=== PATIENT | female | born 1995 | race Hispanic/Latino ===

== ENCOUNTER 2021-02-21 02:04 | Emergency (ER) | payer OTHER, SELFPAY ==
[2021-02-21 17:21] LABS: SARS-CoV-2 PCR by NAA Not Detected (NotDetected)
== END 2021-02-21 02:30 | disposition home or self-care (01) ==
LOC: NAV ERS 02:04
DX: J06.9 Acute upper respiratory infection, unspecified (principal); Z20.822 Contact with and (suspected) exposure to COVID-19; J45.909 Unspecified asthma, uncomplicated
CPT/HCPCS: 99283; U0003; U0005

== ENCOUNTER 2021-11-29 23:56 | Emergency (ER) | payer BC, OTHER ==
[2021-11-30] MEDS ORDERED: methylPREDNISolone Sod Succ/PF 125 MG/2 ML VIAL ONE (00:32)
== END 2021-11-30 01:10 | disposition home or self-care (01) ==
LOC: NAV ERS 23:56
DX: J45.909 Unspecified asthma, uncomplicated (principal)
CPT/HCPCS: 71045; 96372; J2930; J7620

== ENCOUNTER 2023-10-31 06:15 | Emergency (ER) | payer BC, SELFPAY ==
[2023-10-31] MEDS ORDERED: methylPREDNISolone Sod Succ/PF 125 MG/2 ML VIAL ONE (06:42)
[2023-10-31 07:15] LABS: Base Excess-Venous 0.1 mmol/L (-2.0 to 3.0); Bicarbonate (HCO3v) 25.9 mmol/L (22.0-28.0); CO2 Tension (PvCO2) 45.2 mmHg (42.0-51.0); Calcium, Ionized 1.22 mmol/L (1.15-1.33); Chloride 104 mmol/L (98-107); Hemoglobin - Calc 13.3 g/dL (12.0-16.0); Potassium 3.6 mmol/L (3.5-5.1); Sodium 139 mmol/L (138-145); T. Carbon Dioxide 27.3 mmol/L (22.0-28.0); vO2 Saturation-calc 78.3 % (60.0-85.0)
[2023-10-31 07:16] LABS: Influenza A by NAA Not Detected (NotDetected); Influenza B by NAA Not Detected (NotDetected); SARS-CoV-2 NAA Rapid Test Not Detected (NotDetected)
[2023-10-31 07:24] LABS: ALT (SGPT) 37 U/L (8-55); AST (SGOT) 21 U/L (5-34); Albumin 3.9 g/dL (3.5-5.0); Alkaline Phosphatase 86 U/L (40-110); Anion Gap 15 mmol/L (10-20); BUN (Urea Nitrogen) 9 mg/dL (7.0-18.7); Bilirubin, Total 0.6 mg/dL (0.2-1.2); Calc. Creatinine Clearance 0 mL/min (70-130); Calcium 9.3 mg/dL (7.8-10.44); Carbon Dioxide 23 mmol/L (22-29); Chloride 104 mmol/L (98-107); Estimated GFR 109; Globulin 3.2 g/dL (2.4-3.5); Glucose 129 mg/dL (70-105); Potassium 3.7 mmol/L (3.5-5.1); Protein, Total 7.1 g/dL (6.0-8.3); Sodium 138 mmol/L (136-145)
[2023-10-31 07:28] LABS: #Basophils 0.1 thou/uL (0.0-0.2); #Eosinphils 0.6 thou/uL (0.0-0.7); #Lymphocytes 2.6 thou/uL (1.20-3.40); #Monocytes 0.8 thou/uL (0.11-0.59); #Neutrophils 3.6 thou/uL (1.40-6.50); %Basophils 1.6 % (0.0-1.0); %Eosinophils 7.5 % (0.0-10.0); %Lymphocytes 34.1 % (21.0-51.0); %Monocytes 10.1 % (0.0-10.0); %Neutrophils 46.7 % (42.0-75.0); Hematocrit 39.2 % (36.0-47.0); Mean Corpuscular HGB CONC 30.6 g/dL (32.0-36.0); Mean Corpuscular Hemoglobin 22.5 pg (27.0-31.0); Mean Corpuscular Volume 73.7 fl (78.0-98.0); Platelet Count 233 10x3/uL (130-400); RBC Distribution Width 14.7 % (11.5-14.5); Red Blood Cell (RBC) Count 5.32 mill/uL (4.20-5.40); White Blood Cell (WBC) Count 7.6 10x3/uL (4.8-10.8)
== END 2023-10-31 08:07 | disposition home or self-care (01) ==
LOC: NAV ERS 06:15
DX: J45.909 Unspecified asthma, uncomplicated (principal); B34.9 Viral infection, unspecified
CPT/HCPCS: 71045; 80053; 82330; 82435; 82803; 83880; 84132; 84295; 85014; 85025; J2930

== ENCOUNTER 2023-11-30 11:37 | Emergency (ER) | payer BC ==
[2023-11-30] MEDS ORDERED: predniSONE 20 MG TAB ONE (11:51)
[2023-11-30] MEDS ORDERED: Ipratropium/Albuterol 3 ML NEB ONE (11:51)
== END 2023-11-30 12:34 | disposition home or self-care (01) ==
LOC: NAV ERS 11:37
DX: J45.909 Unspecified asthma, uncomplicated (principal); R73.03 Prediabetes
CPT/HCPCS: J7512; J7620

== ENCOUNTER 2025-02-02 11:45 | Emergency (ER) | payer BC ==
[2025-02-02] MEDS ORDERED: predniSONE 20 MG TAB ONE (12:05)
== END 2025-02-02 12:40 | disposition home or self-care (01) ==
LOC: NAV ERS 11:45
DX: J45.901 Unspecified asthma with (acute) exacerbation (principal); Z79.51 Long term (current) use of inhaled steroids
CPT/HCPCS: J7512

== ENCOUNTER 2025-03-05 06:21 | Emergency (ER) | payer BC ==
[2025-03-05] MEDS ORDERED: Albuterol 2.5 MG (3 mL) NEB ONE ×2 (06:43→07:50)
[2025-03-05] MEDS ORDERED: Magnesium 2 GM/50 ML BAG (IN WATER) ONE (07:39)
[2025-03-05 07:50] LABS: Hematocrit 45.9 % (36.0-47.0); Hemoglobin 15.3 g/dL (12.0-16.0); Mean Corpuscular Hemoglobin 24.7 pg (27.0-31.0); Mean Corpuscular Volume 74.3 fl (78.0-98.0); Platelet Count 336 10x3/uL (130-400); Red Blood Cell (RBC) Count 6.17 mill/uL (4.20-5.40); White Blood Cell (WBC) Count 11.6 10x3/uL (4.8-10.8)
[2025-03-05 07:57] LABS: MDiff Complete? YES; Platelet Adequacy Comment Appears Adequate
[2025-03-05 08:00] LABS: ALT (SGPT) 33 U/L (Less than 34); AST (SGOT) 22 U/L (11-34); Albumin 4.4 g/dL (3.1-4.5); Alkaline Phosphatase 68 U/L (40-110); Anion Gap 18 mmol/L (10-20); BUN (Urea Nitrogen) 11 mg/dL (7.0-18.7); Bilirubin, Total 0.6 mg/dL (0.3-1.2); Calc. Creatinine Clearance 0 mL/min (70-130); Calcium 9.1 mg/dL (7.8-10.44); Carbon Dioxide 17 mmol/L (22-29); Chloride 106 mmol/L (98-107); Globulin 3.8 g/dL (2.4-3.5); Glucose 159 mg/dL (70-105); Magnesium 2.0 mg/dL (1.6-2.6); Potassium 3.7 mmol/L (3.5-5.1); Sodium 137 mmol/L (136-145)
[2025-03-05 08:20] LABS: Bicarbonate (HCO3v) 19.6 mmol/L (22.0-28.0); CO2 Tension (PvCO2) 31.5 mmHg (42.0-51.0); Calcium, Ionized 1.16 mmol/L (1.15-1.33); Chloride 109 mmol/L (98-107); Hemoglobin - Calc 15.1 g/dL (12.0-16.0); Potassium 3.7 mmol/L (3.5-5.1); Sodium 136 mmol/L (138-145); T. Carbon Dioxide 20.6 mmol/L (22.0-28.0); vO2 Saturation-calc 91.6 % (60.0-85.0)
[2025-03-05] MEDS ORDERED: Albuterol 2.5 MG (0.5 mL) NEB ONE ×3 (11:50→17:16)
== END 2025-03-05 18:51 | disposition home or self-care (01) ==
LOC: NAV ERS 06:21
DX: J45.901 Unspecified asthma with (acute) exacerbation (principal); B09 Unspecified viral infection characterized by skin and mucous membrane lesions; R09.02 Hypoxemia; Z79.899 Other long term (current) drug therapy
CPT/HCPCS: 71046; 80053; 82330; 82803; 83735; 85025; 94760; 96365; 96366; 96375; 96376; J2919; J3475; J7030; J7611; J7626